=== PATIENT | female | born 1960 | race Caucasian/White ===

== ENCOUNTER → 2016-12-16 | Outpatient (CLI) | payer BC ==
--- NOTE | 2016-12-16 17:01 | REP ---
Left shoulder series: Three views: History: Joint pain in the shoulder for 2 years. Progressive. No comparison study. Findings: The left glenohumeral and acromioclavicular joints are normally aligned. Periarticular soft tissues are unremarkable. No bony erosive changes seen. No left rib abnormality is appreciated. Impression: Negative left shoulder radiographs. Signed by Finn Horta MD 12/17/2016 08:16 A
== END ==
LOC: M WUC 16:41
PROVIDERS: ATTEND Nurse Practitioner Family
DX: M25.551 Pain in right hip (principal); M46.1 Sacroiliitis, not elsewhere classified; M51.36 Other intervertebral disc degeneration, lumbar region; M54.5 Low back pain; M54.12 Radiculopathy, cervical region

== ENCOUNTER → 2017-05-02 | Outpatient (CLI) | payer BC ==
[2017-05-02 14:17] LABS: TOTAL PROTEIN 7.8 GM/DL (6.4-8.2)
[2017-05-06 11:58] LABS: ALBUMIN 4.87 GM/DL (3.29-5.55); ALBUMIN % 62.4 % (55.8-66.1); GAMMA GLOBULIN % 11.7 % (11.1-18.8)
== END ==
LOC: M SMT 11:25
PROVIDERS: ATTEND Physician Assistant Medical
DX: I63.9 Cerebral infarction, unspecified (principal)

== ENCOUNTER → 2018-02-25 | Outpatient (REF) | payer BC | LOC: M LAB REF 09:05 | DX: J35.8 Other chronic diseases of tonsils and adenoids (principal) | CPT/HCPCS: 88305 ==

== ENCOUNTER → 2018-03-25 | Outpatient (CLI) | payer BC | LOC: M RAD 15:32 | DX: H93.11 Tinnitus, right ear (principal) | CPT/HCPCS: 70480 ==

== ENCOUNTER → 2018-06-05 | Outpatient (REF) | payer BC ==
[2018-06-05 14:09] LABS: BASO % 0.8 % (0.0-1.0); EOS # 0.1 10^3/uL (0.0-0.50); EOS % 1.7 % (0.0-3.0); HEMATOCRIT 46.1 % (36.0-47.0); HEMOGLOBIN 14.7 g/dl (12.0-15.5); IMMATURE GRANULOCYTE % 0.4 % (0-3.0); LYMPH # 1.9 10^3/uL (1.5-4.5); LYMPH % 36.9 % (24.0-44.0); MEAN CORPUSCULAR HEMOGLOBIN 29.2 pg (27.0-33.0); MEAN CORPUSCULAR HGB CONC 31.9 g/dl (32.0-36.5); MEAN CORPUSCULAR VOLUME 91.5 fl (80.0-96.0); MONO # 0.4 10^3/uL (0.0-0.8); MONO % 7.3 % (0.0-5.0); NEUTROPHILS # 2.8 10^3/uL (1.8-7.7); NEUTROPHILS % 52.9 % (36.0-66.0); PLATELET COUNT, AUTOMATED 198 10^3/uL (150-450); RED BLOOD COUNT 5.04 10^6/uL (4.00-5.40); RED CELL DISTRIBUTION WIDTH 11.9 % (11.5-14.5); WHITE BLOOD COUNT 5.2 10^3/uL (4.0-10.0)
[2018-06-05 14:36] LABS: ALBUMIN 4.2 GM/DL (3.2-5.2); ALBUMIN/GLOBULIN RATIO 1.35 (1.00-1.93); ALKALINE PHOSPHATASE 70 U/L (45-117); ALT/SGPT 48 U/L (12-78); ANION GAP 9 MEQ/L (8-16); AST/SGOT 33 U/L (7-37); BILIRUBIN,TOTAL 0.8 MG/DL (0.2-1.0); BLOOD UREA NITROGEN 12 MG/DL (7-18); CALCIUM LEVEL 9.7 MG/DL (8.5-10.1); CARBON DIOXIDE LEVEL 29 MEQ/L (21-32); CHLORIDE LEVEL 105 MEQ/L (98-107); CREATININE FOR GFR 0.83 MG/DL (0.55-1.30); GLOMERULAR FILTRATION RATE > 60.0 (>51); GLUCOSE, FASTING 89 MG/DL (70-100); POTASSIUM SERUM 3.9 MEQ/L (3.5-5.1); PTH INTACT 86.5 PG/ML (18.5-88.0); RHEUMATOID FACTOR QUANT < 10.0 IU/ML (<15.0); SODIUM LEVEL 143 MEQ/L (136-145); TOTAL PROTEIN 7.3 GM/DL (6.4-8.2)
[2018-06-05 15:27] LABS: ERYTHROCYTE SEDIMENTATION RATE 4 mm/hr (0-30)
[2018-06-06 14:32] LABS: ANTINUCLEAR ANTIBODIES DIRECT Negative (Negative)
[2018-06-09 10:27] LABS: DRVV SCREEN 37.9 SEC
[2018-06-09 10:28] LABS: PTT LUPUS TYPE ANTICOAG SCREEN 0.9 (0-1.2)
== END ==
LOC: M LABNEURO 09:28
DX: R51 Headache (principal); M54.2 Cervicalgia; R20.0 Anesthesia of skin
CPT/HCPCS: 84443

== ENCOUNTER 2018-10-04 05:44 | Day surgery (SDC) | payer BC ==
[~2018-10-04] VITALS: Ht 165.1 cm; Wt 60.5 kg
[2018-10-04] MEDS ORDERED: MORPHINE 10 MG/ML 1ML VIAL (J2270) IV ONE (06:15)
[2018-10-04] MEDS ORDERED: METOCLOPRAMIDE INJ 10MG/2ML VIAL (J2765) IV ONE (06:15)
[2018-10-04] MEDS ORDERED: NS 1,000 ML IV ONE (06:15)
[2018-10-04 06:28] LABS: BASO % 0.1 % (0.0-1.0); HEMATOCRIT 40.4 % (36.0-47.0); HEMOGLOBIN 13.6 g/dl (12.0-15.5); LYMPH # 0.5 10^3/uL (1.5-4.5); MEAN CORPUSCULAR HEMOGLOBIN 29.8 pg (27.0-33.0); MEAN CORPUSCULAR HGB CONC 33.7 g/dl (32.0-36.5); MEAN CORPUSCULAR VOLUME 88.6 fl (80.0-96.0); MONO # 0.7 10^3/uL (0.0-0.8); MONO % 4.4 % (0.0-5.0); NEUTROPHILS # 15.4 10^3/uL (1.8-7.7); NEUTROPHILS % 91.9 % (36.0-66.0); PLATELET COUNT, AUTOMATED 174 10^3/uL (150-450); RED BLOOD COUNT 4.56 10^6/uL (4.00-5.40); WHITE BLOOD COUNT 16.7 10^3/uL (4.0-10.0)
[2018-10-04] MEDS: GASTROGRAFIN SOLUTION 30ML PO SCH ×2 (06:35→07:15)
[2018-10-04] MEDS ORDERED: metroNIDAZOLE 500 MG in APPROPRIATE DILUENT 1 EA IV ONE (06:45)
[2018-10-04] MEDS ORDERED: PIPERACILLIN/TAZOBACTAM SOD 3.375 GM in D5W MINI-BAG PLUS 50 ML IV ONE (06:45)
[2018-10-04 06:49] LABS: ALBUMIN 4.1 GM/DL (3.2-5.2); ALT/SGPT 36 U/L (12-78); BILIRUBIN,DIRECT 0.2 MG/DL (0.0-0.2); BLOOD UREA NITROGEN 12 MG/DL (7-18); CALCIUM LEVEL 9.3 MG/DL (8.5-10.1); CARBON DIOXIDE LEVEL 25 MEQ/L (21-32); CHLORIDE LEVEL 104 MEQ/L (98-107); CREATININE FOR GFR 0.93 MG/DL (0.55-1.30); GLOMERULAR FILTRATION RATE > 60.0 (>51); GLUCOSE, FASTING 163 MG/DL (70-100); LIPASE 70 U/L (73-393); POTASSIUM SERUM 3.7 MEQ/L (3.5-5.1); SODIUM LEVEL 139 MEQ/L (136-145)
--- NOTE | 2018-10-04 08:43 | REP ---
Clinical: Right lower quadrant pain. Technique: Axial images from the lung bases to the pubic symphysis using oral contrast material (per protocol) with coronal and sagittal re-formations. Findings: Retrocecal appendix is dilated to 13 mm with moderate amount of surrounding betty appendiceal inflammatory stranding consistent with acute appendicitis. (Images 77-102). No associated bowel obstruction, drainable collection/abscess, or free air to suggest perforation. Remainder of the small large bowel is grossly unremarkable. Liver, spleen, pancreas, bilateral adrenal glands and kidneys are normal. The patient is status post cholecystectomy. Pelvis demonstrates normal bladder and age-appropriate uterus/adnexa. No ascites. No free air. No significant adenopathy. Abdominal aorta without aneurysm. Musculoskeletal structures demonstrate degenerative changes. Impression: Acute appendicitis as described above. No associated bowel perforation, obstruction, or drainable collection/abscess noted. Electronically Signed by Raul Yarbrough MD 10/04/2018 08:35 A
[2018-10-04] MEDS ORDERED: BUPIVACAINE/EPIN 0.25% 30 ML VIAL As Ordered ONE (09:05)
[2018-10-04] MEDS ORDERED: METOCLOPRAMIDE INJ 10MG/2ML VIAL (J2765) As Ordered ONE (09:25)
[2018-10-04] MEDS ORDERED: KETOROLAC 60 MG/2 ML VIAL (J1885) As Ordered ONE (09:25)
[2018-10-04] MEDS ORDERED: LIDOCAINE 2% INJ 100 MG/5 ML SDV (FOR ANES.) As Ordered ONE (09:25)
[2018-10-04] MEDS ORDERED: PROPOFOL 200 MG/20 ML VIAL As Ordered ONE (09:25)
[2018-10-04] MEDS ORDERED: fentaNYL 100 MCG/2 ML INJECTION (J3010) As Ordered ONE (09:25)
[2018-10-04] MEDS ORDERED: ONDANSETRON 4MG/2ML VIAL (J2405) As Ordered ONE (09:25)
[2018-10-04] MEDS ORDERED: MIDAZOLAM INJ 2 MG/2 ML VIAL (J2250) As Ordered ONE (09:25)
[2018-10-04] MEDS ORDERED: ROCURONIUM BROMIDE 50 MG/5 ML VIAL As Ordered ONE (09:25)
[2018-10-04] MEDS ORDERED: dexameTHASONE 4 MG/ML 1ML VIAL (J1100) As Ordered ONE (09:25)
[2018-10-04] MEDS ORDERED: SUGAMMADEX SODIUM 500 MG/5 ML VIAL (BRIDION) As Ordered ONE (09:25)
[2018-10-04] MEDS ORDERED: SUCCINYLCHOLINE 100 MG/5 ML SYRINGE (J0330) As Ordered ONE (09:37)
[2018-10-04] MEDS ORDERED: ePHEDrine SULFATE 25 MG/5 ML(5MG/ML) SYRINGE As Ordered ONE (09:42)
[2018-10-04 09:52] LABS: APPEARANCE, URINE CLEAR (CLEAR); BACTERIA, URINE AUTO NEGATIVE (NEGATIVE); BILIRUBIN, URINE AUTO NEGATIVE (NEGATIVE); BLOOD, URINE BLOOD 1+ (NEGATIVE); COLOR, URINE YELLOW (YELLOW); GLUCOSE, URINE (UA) AUTO NEGATIVE (NEGATIVE); KETONE, URINE AUTO NEGATIVE (NEGATIVE); LEUKOCYTE ESTERASE, URINE AUTO TRACE (NEGATIVE); NITRITE, URINE AUTO NEGATIVE (NEGATIVE); PROTEIN, URINE AUTO NEGATIVE (NEGATIVE); RBC, URINE AUTO 9 /HPF (0-3); SPECIFIC GRAVITY URINE AUTO 1.011 (1.002-1.035); SQUAMOUS EPITHELIAL CELL UR AU 0 /HPF (0-6); UROBILINOGEN, URINE AUTO 0.2 mg/dL (0.0-2.0); WBC, URINE AUTO 3 /HPF (0-3)
[2018-10-04] MEDS ORDERED: ACETAMINOPHEN TAB 650MG DOSE (2X325MG) PO PRN (10:15)
[2018-10-04] MEDS ORDERED: MORPHINE 4 MG/ML 1ML VIAL/SYRINGE (J2270) IV PRN (10:15)
[2018-10-04] MEDS ORDERED: ONDANSETRON 4MG/2ML VIAL (J2405) IV PRN ×2 (10:15→10:45)
[2018-10-04] MEDS ORDERED: KETOROLAC 30 MG/ML VIAL (J1885) IV PRN (10:15)
[2018-10-04] MEDS ORDERED: PERCOCET 5MG/325MG TAB As Ordered ONE (10:34)
[2018-10-04] MEDS ORDERED: HYDROMORPHONE HCL 0.5 MG/ 0.5 ML SYRINGE (J1170 PER 1) IV PRN (10:45)
[2018-10-04] MEDS ORDERED: LR 1,000 ML IV SCH (10:45)
[2018-10-04] MEDS ORDERED: fentaNYL 100 MCG/2 ML INJECTION (J3010) IV PRN (10:45)
[2018-10-04] MEDS ORDERED: PERCOCET 5MG/325MG TAB PO PRN (10:45)
--- NOTE | 2018-10-04 11:13 | HPE ---
DATE OF ADMISSION: 10/04/2018 CHIEF COMPLAINT: Right lower quadrant pain. HISTORY OF PRESENT ILLNESS: The patient is a 58-year-old female who presents with right lower quadrant abdominal pain that started yesterday and got progressively worse overnight. She came into emergency room early this morning. She was found to have an elevated white count and CT scan was positive for acute appendicitis. She has had nausea, vomiting and loose stools. Denies any fevers or chills. PAST MEDICAL HISTORY: 1. Hypertension. 2. Stroke. PAST SURGICAL HISTORY: 1. Tubal ligation. 2. Parathyroidectomy. 3. Laparoscopic cholecystectomy. 4. Cataract surgery. ALLERGIES: None. HOME MEDICATIONS: None. SOCIAL HISTORY: Denies drug, alcohol or tobacco abuse. FAMILY HISTORY: Noncontributory. REVIEW OF SYSTEMS: Pertinent positives and negatives as stated in the history of present illness (HPI). PHYSICAL EXAMINATION: General: Alert and oriented times three, in no acute stress. Vitals: Temperature 98.7, pulse 68, respirations 18, blood pressure 130/64, pulse oximetry 99% on room air. HEENT: Pupils equally round and react to light and accommodation. Heart: S1 and S2,regular rate and rhythm. Lungs: Clear to auscultation bilaterally. Abdomen: Soft. Tender to palpation in the right lower quadrant. No guarding or rigidity. No ventral hernias. Extremities: No clubbing, cyanosis or edema. LABORATORY DATA: White count 16.7, hemoglobin 13.6, platelets 174, potassium 3.7, creatinine 0.93. IMAGING STUDIES: CT of abdomen and pelvis shows dilated retrocecal appendix 13 mm with surrounding periappendiceal inflammatory stranding consistent with acute appendicitis. ASSESSMENT/PLAN: The patient is a 58-year-old female with acute appendicitis. Recommendation is to proceed with laparoscopic, possible open appendectomy. The risks and benefits of the procedure not limited to, but including bleeding, infection, hernia formation, damage to surrounding structures, need for further surgery were discussed in detail with the patient. Postoperatively, will keep her overnight and make sure that she remains afebrile and her white count improves. As long as she is doing well in the morning, the plan will be to discharge her then.
[2018-10-04] MEDS: NS 1,000 ML IV SCH ×2 (11:45→20:47)
[2018-10-04] MEDS: NORCO, ANEXSIA 5/325MG TABLET (HYDROcodone/ACETAMINOPHEN) PO PRN ×2 (12:14→20:49)
[2018-10-04 14:00] VITALS: BP 107/56
[2018-10-04] MEDS: PIPERACILLIN/TAZOBACTAM SOD 3.375 GM in D5W MINI-BAG PLUS 50 ML IV SCH ×2 (14:16→20:47)
[2018-10-04] MEDS: SENOKOT S TAB PO SCH (20:48)
[2018-10-04 21:00] VITALS: BP 111/62
[2018-10-05] MEDS: PIPERACILLIN/TAZOBACTAM SOD 3.375 GM in D5W MINI-BAG PLUS 50 ML IV SCH ×2 (01:08→09:38)
[2018-10-05 01:14] VITALS: BP 104/58
[2018-10-05 04:48] VITALS: BP 117/60
[2018-10-05] MEDS: NS 1,000 ML IV SCH ×2 (07:02→10:30)
[2018-10-05 07:10] LABS: HEMATOCRIT 34.8 % (36.0-47.0); MEAN CORPUSCULAR HEMOGLOBIN 29.6 pg (27.0-33.0); MEAN CORPUSCULAR HGB CONC 32.8 g/dl (32.0-36.5); MEAN CORPUSCULAR VOLUME 90.4 fl (80.0-96.0); PLATELET COUNT, AUTOMATED 142 10^3/uL (150-450); RED BLOOD COUNT 3.85 10^6/uL (4.00-5.40)
[2018-10-05 07:15] LABS: HEMOGLOBIN 11.4 g/dl (12.0-15.5)
[2018-10-05] MEDS ORDERED: CIPR500T3 PO (09:38)
[2018-10-05] MEDS ORDERED: NORCOTAB PO (09:38)
[2018-10-05] MEDS ORDERED: METR-201 PO (09:38)
[2018-10-05] MEDS: SENOKOT S TAB PO SCH (09:38)
--- NOTE | 2018-10-05 12:46 | RO ---
DATE OF PROCEDURE: 10/04/2018 PREOPERATIVE DIAGNOSIS: Acute appendicitis. POSTOPERATIVE DIAGNOSIS: Acute appendicitis. PROCEDURE: Laparoscopic appendectomy. SURGEON: Dr. Simon Pereira ASSIST: None. ANESTHESIA: General: ESTIMATED BLOOD LOSS (EBL): 5 COMPLICATIONS: None. INDICATIONS FOR PROCEDURE: Patient is a 58-year-old female, presents with right lower quadrant abdominal pain found to have acute appendicitis. Recommendation was to proceed laparoscopic possible open appendectomy. Risks and benefits of procedure, not limited to but including, bleeding, infection, hernia formation, damage to surrounding structures, need for further surgery, discussed in detail with the patient. Informed consent was obtained and procedure planned. DESCRIPTION OF OPERATION: Patient was brought back to operating room #3. After sufficient sedation, the abdomen was sterilely prepped and draped. Next, a time-out was done to confirm proper patient, proper procedure. Following that, a 5 mm incision made in left upper quadrant. Veress needle was inserted, and was the abdomen was insufflated 15 mmHg. Next, the Veress needle was removed, and a 5 mm Optiview port was used to gain access to the abdomen. The abdomen was entered. There were omental adhesions right at the umbilicus. Two more ports were placed, one 8 mm infraumbilically in the midline, and one 5 mm port suprapubically in the midline. The omental adhesions were taken down at the umbilicus to improve visualization. Once that was completed, the right lower quadrant was examined, and the cecum was retracted medially identifying a large, dilated appendix. It was easily elevated up in the air. Mesoappendix was then taken down using the Enseal until the base was reached. Base was ligated by two PDS Endoloops and then amputated using the Enseal. Appendix was then placed a 5 mm Endo Catch bag, brought out through the umbilical port site. Once that was completed, the right lower quadrant was examined. The omentum was placed back overtop of the right lower quadrant. The abdomen was desufflated. Skin incisions were closed with #4-0 Vicryl subcuticular sutures. The abdomen was cleaned and dried. Steri-Strips, 4x4, and tape were applied, thus ending procedure.
--- NOTE | 2018-10-06 06:13 | DSES ---
DATE OF ADMISSION: 10/04/2018 DATE OF DISCHARGE: 10/05/2018 ADMISSION DIAGNOSIS: Acute appendicitis. DISCHARGE DIAGNOSIS: Acute appendicitis. HOSPITAL COURSE: The patient is a 50-year-old female who presented with acute appendicitis. She was brought to operating room yesterday morning for laparoscopic appendectomy. Postoperatively she has been doing well. Pain is controlled other than a little bit of gas pains in the right shoulder. No nausea or vomiting. No fevers or chills. She is tolerating diet and is planning to go home today. Her white count is still elevated but has improved from 16.7 down to 16. Rest of her labs were normal range. Plan is to discharge her home today. Will keep her on Cipro and Flagyl for about 7 days. She can shower starting today. No baths for 5 days. No lifting more 20 pounds and she is okay to return to work whenever she would like. All of her questions were answered and she will follow up me in the office in 2 weeks.
== END 2018-10-05 11:07 | disposition home or self-care (01) ==
LOC: M ED 05:44 → M SDC 08:45 → M MS4PR 10:50 → M SDC 10-05 11:07
PROVIDERS: ATTEND Surgery
DX: K35.890 Other acute appendicitis without perforation or gangrene (principal); E78.5 Hyperlipidemia, unspecified; I10 Essential (primary) hypertension; Z86.73 Personal history of transient ischemic attack (TIA), and cerebral infarction without residual deficits; Z79.82 Long term (current) use of aspirin; Z79.899 Other long term (current) drug therapy; M54.5 Low back pain
CPT/HCPCS: 36415; 44970; 74176; 80048; 80076; 81001; 83690; 85025; 85027; 87086; 88304; 96365; 96366; 96375; 99284; J0330; J1100; J1885; J2250; J2270; J2405; J2543; J2765; J3010; Q9963

== ENCOUNTER 2018-11-04 06:41 | Day surgery (SDC) | payer BC ==
[~2018-11-04] VITALS: Ht 165.1 cm; Wt 59.4 kg
[~2018-11-04 06:41] MED LIST: ALEN70TA74 PO; ASPI-255 PO; ATOR1TAB19 PO; CIPR500T3 PO; COQ1100C PO; GABA-843 PO; GABA600T4 PO; HYDR-3715 PO; LISI-538 PO; MAGN400C2 PO; MELA5TAB21 PO; METR-265 PO; MULT1TAB10 PO; TIZA4CAP PO; TRAM37.53 PO; XIID5DRO OU
[2018-11-04] MEDS ORDERED: LIDOCAINE 2% INJ 100 MG/5 ML SDV (FOR ANES.) As Ordered ONE (07:02)
[2018-11-04] MEDS ORDERED: PROPOFOL 200 MG/20 ML VIAL As Ordered ONE ×2 (07:02→07:45)
[2018-11-04] MEDS ORDERED: SIMETHICONE 40MG/0.6ML DROPS 30ML As Ordered ONE (07:10)
[2018-11-04] MEDS: NS 1,000 ML IV ONE (07:15)
--- NOTE | 2018-11-04 08:01 | ROOR ---
Patient Name: Lesvia Albert Procedure Date: 11/04/2018 7:30 AM Date of : 1960 Age: 58 Room: [facility] Gender: Female Note Status: Finalized Procedure: Colonoscopy Indications: Hematochezia Providers: DO Eloisa Wing MD: CHUCKY HOPKINS MD Requesting Provider: Medicines: Propofol per Anesthesia Complications: No immediate complications. Procedure: Pre-Anesthesia Assessment: - Prior to the procedure, a History and Physical was performed, and patient medications and allergies were reviewed. The patient is competent. The risks and benefits of the procedure and the sedation options and risks were discussed with the patient. All questions were answered and informed consent was obtained. Patient identification and proposed procedure were verified by the physician, the nurse, the conservation enforcement officer and the racking technician in the endoscopy suite. Mental Status Examination: alert and oriented. Airway Examination: normal oropharyngeal airway and neck mobility. Respiratory Examination: clear to auscultation. CV Examination: normal. ASA Grade Assessment: II - A patient with mild systemic disease. After reviewing the risks and benefits, the patient was deemed in satisfactory condition to undergo the procedure. The anesthesia plan was to use monitored anesthesia care (MAC). Immediately prior to administration of medications, the patient was re-assessed for adequacy to receive sedatives. The heart rate, respiratory rate, oxygen saturations, blood pressure, adequacy of pulmonary ventilation, and response to care were monitored throughout the procedure. The physical status of the patient was re-assessed after the procedure. The Colonoscope was introduced through the anus and advanced to the cecum, identified by the ileocecal valve. The colonoscopy was technically difficult and complex. The patient tolerated the procedure well. Findings: The perianal exam findings include non-thrombosed internal hemorrhoids and internal hemorrhoids that prolapse with straining, but spontaneously regress to the resting position (Grade II). A few small-mouthed diverticula were found in the sigmoid colon. The exam was otherwise without abnormality on direct and retroflexion views. Impression: - Non-thrombosed internal hemorrhoids and internal hemorrhoids that prolapse with straining, but spontaneously regress to the resting position (Grade II) found on perianal exam. - Diverticulosis in the sigmoid colon. - The examination was otherwise normal on direct and retroflexion views. - No specimens collected. Recommendation: - Patient has a contact number available for emergencies. The signs and symptoms of potential delayed complications were discussed with the patient. Return to normal activities tomorrow. Written discharge instructions were provided to the patient. - Telephone my office to schedule appointment at the next available appointment. - Repeat colonoscopy in 5-10 years for screening purposes. Simon Pereira DO 11/04/2018 8:01:27 AM Electronically signed by Simon Pereira DO Number of Addenda: 0 Note Initiated On: 11/04/2018 7:30 AM Estimated Blood Loss: Estimated blood loss: none.
[2018-11-04 08:20] VITALS: BP 131/68
== END 2018-11-04 08:27 | disposition home or self-care (01) ==
LOC: M OPP 06:41
PROVIDERS: ATTEND Surgery
DX: K64.1 Second degree hemorrhoids (principal); K57.30 Diverticulosis of large intestine without perforation or abscess without bleeding; K92.1 Melena

== ENCOUNTER 2018-11-13 10:37 | Emergency (ER) | payer BC ==
[~2018-11-13] VITALS: Ht 165.1 cm; Wt 59.1 kg
[2018-11-13] MEDS: ACETAMINOPHEN TAB 650MG DOSE (2X325MG) PO ONE (11:09)
--- NOTE | 2018-11-13 12:04 | REP ---
Right lower extremity Duplex Doppler venous ultrasound: Real time compression and duplex Doppler interrogation of the right lower extremity deep venous system is performed. The right common femoral, superficial femoral and popliteal veins are fully compressible with transducer pressure and demonstrate normal spontaneous and phasic flow, without evidence of deep venous thrombosis. Impression: No evidence of deep venous thrombosis of the right lower extremity femoral popliteal venous system. Electronically Signed by Simon Sheldon MD 11/13/2018 11:56 A
--- NOTE | 2018-11-13 12:09 | REP ---
ULTRASOUND RIGHT CALF: Real-time sonographic evaluation of the right calf performed at the site of the painful lump. There is a thrombosed varicose vein at that location without other significant finding. IMPRESSION: Thrombosed varicose vein right calf at the site of the palpable painful lump. Electronically Signed by Simon Sheldon MD 11/13/2018 05:04 P
[2018-11-13 12:26] VITALS: BP 108/67
== END 2018-11-13 12:27 | disposition home or self-care (01) ==
LOC: M ED 10:37
DX: I82.811 Embolism and thrombosis of superficial veins of right lower extremity (principal); I10 Essential (primary) hypertension; E78.5 Hyperlipidemia, unspecified; M81.0 Age-related osteoporosis without current pathological fracture; Z79.899 Other long term (current) drug therapy; Z79.82 Long term (current) use of aspirin

== ENCOUNTER → 2018-12-25 | Outpatient (CLI) | payer BC ==
[2018-12-25 13:04] LABS: BASO % 0.6 % (0.0-1.0); EOS # 0.1 10^3/uL (0.0-0.50); EOS % 1.9 % (0.0-3.0); HEMATOCRIT 44.8 % (36.0-47.0); HEMOGLOBIN 14.5 g/dl (12.0-15.5); LYMPH # 1.7 10^3/uL (1.5-4.5); LYMPH % 32.1 % (24.0-44.0); MEAN CORPUSCULAR HEMOGLOBIN 29.7 pg (27.0-33.0); MEAN CORPUSCULAR HGB CONC 32.4 g/dl (32.0-36.5); MEAN CORPUSCULAR VOLUME 91.6 fl (80.0-96.0); MONO # 0.5 10^3/uL (0.0-0.8); MONO % 8.8 % (0.0-5.0); NEUTROPHILS # 2.9 10^3/uL (1.8-7.7); NEUTROPHILS % 56.4 % (36.0-66.0); PLATELET COUNT, AUTOMATED 180 10^3/uL (150-450); RED BLOOD COUNT 4.89 10^6/uL (4.00-5.40); WHITE BLOOD COUNT 5.2 10^3/uL (4.0-10.0)
[2018-12-25 13:18] LABS: ALBUMIN 4.1 GM/DL (3.2-5.2); ALT/SGPT 70 U/L (12-78); BILIRUBIN,TOTAL 0.7 MG/DL (0.2-1.0); BLOOD UREA NITROGEN 12 MG/DL (7-18); CALCIUM LEVEL 9.8 MG/DL (8.5-10.1); CARBON DIOXIDE LEVEL 34 MEQ/L (21-32); CHLORIDE LEVEL 106 MEQ/L (98-107); CHOLESTEROL LEVEL 169 MG/DL (<200); CHOLESTEROL RISK RATIO 2.682 (<5); CREATININE FOR GFR 0.84 MG/DL (0.55-1.30); FREE T4 0.84 NG/DL (0.76-1.46); GLOMERULAR FILTRATION RATE > 60.0 (>51); GLUCOSE, FASTING 97 MG/DL (70-100); HDL CHOLESTEROL 63 MG/DL (>40); LDL CHOLESTEROL 93 MG/DL (<100); NON-HDL-C 106 MG/DL; POTASSIUM SERUM 4.2 MEQ/L (3.5-5.1); SODIUM LEVEL 143 MEQ/L (136-145); TOTAL PROTEIN 7.3 GM/DL (6.4-8.2); TRIGLYCERIDES LEVEL 65 MG/DL (<150)
== END ==
LOC: M SMT 09:44
PROVIDERS: ATTEND Physician Assistant
DX: I10 Essential (primary) hypertension (principal); E78.2 Mixed hyperlipidemia; M54.5 Low back pain

== ENCOUNTER → 2019-03-19 | Outpatient (CLI) | payer BC ==
--- NOTE | 2019-03-19 12:28 | REP ---
Chest x-ray: Three views. History: Acute bronchitis. Findings: The lungs are symmetrically aerated and clear. Pleural angles are sharp. Heart size is normal. No significant bony abnormality is seen. Impression: Negative chest x-ray. Electronically Signed by Finn Horta MD 03/19/2019 12:20 P
== END ==
LOC: M ADAMS 11:00
PROVIDERS: ATTEND Physician Assistant Medical
DX: J20.9 Acute bronchitis, unspecified (principal)

== ENCOUNTER → 2019-04-02 | Outpatient (CLI) | payer BC ==
[2019-04-02 12:09] LABS: BASO % 0.5 % (0.0-1.0); EOS # 0.1 10^3/uL (0.0-0.50); EOS % 1.2 % (0.0-3.0); HEMATOCRIT 44.6 % (36.0-47.0); HEMOGLOBIN 14.8 g/dl (12.0-15.5); LYMPH # 1.6 10^3/uL (1.5-4.5); LYMPH % 28.1 % (24.0-44.0); MEAN CORPUSCULAR HEMOGLOBIN 30.8 pg (27.0-33.0); MEAN CORPUSCULAR HGB CONC 33.2 g/dl (32.0-36.5); MEAN CORPUSCULAR VOLUME 92.9 fl (80.0-96.0); MONO # 0.5 10^3/uL (0.0-0.8); MONO % 8.9 % (0.0-5.0); NEUTROPHILS # 3.4 10^3/uL (1.8-7.7); NEUTROPHILS % 61.1 % (36.0-66.0); PLATELET COUNT, AUTOMATED 202 10^3/uL (150-450); WHITE BLOOD COUNT 5.6 10^3/uL (4.0-10.0)
[2019-04-02 12:36] LABS: ALBUMIN 3.9 GM/DL (3.2-5.2); ALT/SGPT 101 U/L (12-78); BILIRUBIN,TOTAL 0.7 MG/DL (0.2-1.0); BLOOD UREA NITROGEN 12 MG/DL (7-18); CALCIUM LEVEL 10.1 MG/DL (8.5-10.1); CARBON DIOXIDE LEVEL 34 MEQ/L (21-32); CHLORIDE LEVEL 104 MEQ/L (98-107); CHOLESTEROL LEVEL 173 MG/DL (<200); CHOLESTEROL RISK RATIO 2.544 (<5); CREATININE FOR GFR 0.81 MG/DL (0.55-1.30); GLOMERULAR FILTRATION RATE > 60.0 (>51); GLUCOSE, FASTING 130 MG/DL (70-100); HDL CHOLESTEROL 68 MG/DL (>40); LDL CHOLESTEROL 91 MG/DL (<100); NON-HDL-C 105 MG/DL; POTASSIUM SERUM 4.3 MEQ/L (3.5-5.1); SODIUM LEVEL 142 MEQ/L (136-145); TRIGLYCERIDES LEVEL 68 MG/DL (<150)
[2019-04-02 19:45] LABS: HEMOGLOBIN A1c 5.8 %
== END ==
LOC: M WUC 09:20
PROVIDERS: ATTEND Family Medicine
DX: E78.2 Mixed hyperlipidemia (principal); I10 Essential (primary) hypertension

== ENCOUNTER → 2020-03-26 | Outpatient (CLI) | payer BC ==
[2020-03-26 15:27] LABS: BASO % 0.5 % (0.0-1.0); EOS # 0.1 10^3/uL (0.0-0.5); EOS % 1.2 % (0.0-3.0); HEMATOCRIT 45.2 % (36.0-47.0); HEMOGLOBIN 14.5 g/dl (12.0-15.5); LYMPH # 1.6 10^3/uL (1.5-5.0); LYMPH % 22.3 % (24.0-44.0); MEAN CORPUSCULAR HEMOGLOBIN 29.7 pg (27.0-33.0); MEAN CORPUSCULAR HGB CONC 32.1 g/dl (32.0-36.5); MEAN CORPUSCULAR VOLUME 92.4 fl (80.0-96.0); MONO # 0.6 10^3/uL (0.0-0.8); MONO % 8.6 % (0.0-5.0); NEUTROPHILS # 4.9 10^3/uL (1.5-8.5); NEUTROPHILS % 67.1 % (36.0-66.0); PLATELET COUNT, AUTOMATED 196 10^3/uL (150-450); RED BLOOD COUNT 4.89 10^6/uL (4.00-5.40); WHITE BLOOD COUNT 7.4 10^3/uL (4.0-10.0)
[2020-03-26 16:16] LABS: ALT/SGPT 58 U/L (12-78); BILIRUBIN,TOTAL 0.6 MG/DL (0.2-1.0); BLOOD UREA NITROGEN 11 MG/DL (7-18); CALCIUM LEVEL 9.7 MG/DL (8.5-10.1); CARBON DIOXIDE LEVEL 32 MEQ/L (21-32); CHLORIDE LEVEL 107 MEQ/L (98-107); CHOLESTEROL LEVEL 186 MG/DL (<200); CHOLESTEROL RISK RATIO 2.952 (<5); CREATININE FOR GFR 0.96 MG/DL (0.55-1.30); FREE T4 0.76 NG/DL (0.76-1.46); GLOMERULAR FILTRATION RATE > 60.0 (>51); GLUCOSE, FASTING 115 MG/DL (70-100); HDL CHOLESTEROL 63 MG/DL (>40); LDL CHOLESTEROL 100 MG/DL (<100); NON-HDL-C 123 MG/DL; POTASSIUM SERUM 4.3 MEQ/L (3.5-5.1); SODIUM LEVEL 141 MEQ/L (136-145); TOTAL PROTEIN 6.8 GM/DL (6.4-8.2); TRIGLYCERIDES LEVEL 115 MG/DL (<150)
== END ==
LOC: M WUC 08:35
PROVIDERS: ATTEND Physician Assistant
DX: I10 Essential (primary) hypertension (principal); E78.2 Mixed hyperlipidemia; K58.2 Mixed irritable bowel syndrome

== ENCOUNTER → 2020-03-31 | Outpatient (CLI) | payer BC | LOC: M WUC 12:56 | PROVIDERS: ATTEND Family Medicine | DX: R53.83 Other fatigue (principal) ==

== ENCOUNTER → 2020-10-27 | Outpatient (CLI) | payer BC ==
[~2020-10-27] MED LIST changes: -ALEN70TA74 PO; +ALEN70TA82 PO; +GABA-282 PO; -GABA-843 PO; -LISI-538 PO; +LISI20TA33 PO
[2020-10-27 14:51] LABS: BASO % 0.6 % (0.0-1.0); EOS # 0.1 10^3/uL (0.0-0.5); EOS % 1.1 % (0.0-3.0); HEMATOCRIT 43.9 % (36.0-47.0); HEMOGLOBIN 14.1 g/dl (12.0-15.5); LYMPH # 1.9 10^3/uL (1.5-5.0); MEAN CORPUSCULAR HEMOGLOBIN 29.2 pg (27.0-33.0); MEAN CORPUSCULAR HGB CONC 32.1 g/dl (32.0-36.5); MEAN CORPUSCULAR VOLUME 90.9 fl (80.0-96.0); MONO # 0.5 10^3/uL (0.0-0.8); MONO % 8.6 % (2.0-8.0); NEUTROPHILS # 3.7 10^3/uL (1.5-8.5); NEUTROPHILS % 59.4 % (36.0-66.0); PLATELET COUNT, AUTOMATED 199 10^3/uL (150-450); RED BLOOD COUNT 4.83 10^6/uL (4.00-5.40); WHITE BLOOD COUNT 6.3 10^3/uL (4.0-10.0)
[2020-10-27 15:22] LABS: ALBUMIN 4.4 GM/DL (3.2-5.2); ALT/SGPT 31 U/L (12-78); BILIRUBIN,TOTAL 0.7 MG/DL (0.2-1.0); BLOOD UREA NITROGEN 15 MG/DL (7-18); CALCIUM LEVEL 9.9 MG/DL (8.8-10.2); CARBON DIOXIDE LEVEL 30 MEQ/L (21-32); CHLORIDE LEVEL 104 MEQ/L (98-107); CHOLESTEROL LEVEL 187 MG/DL (<200); CHOLESTEROL RISK RATIO 2.833 (<5); CREATININE FOR GFR 0.78 MG/DL (0.55-1.30); GLOMERULAR FILTRATION RATE > 60.0 (>45); GLUCOSE, FASTING 93 MG/DL (70-100); HDL CHOLESTEROL 66 MG/DL (>40); LDL CHOLESTEROL 94 MG/DL (<100); NON-HDL-C 121 MG/DL; POTASSIUM SERUM 3.8 MEQ/L (3.5-5.1); SODIUM LEVEL 140 MEQ/L (136-145); TOTAL PROTEIN 7.2 GM/DL (6.4-8.2); TRIGLYCERIDES LEVEL 135 MG/DL (<150)
== END ==
LOC: M WUC 12:02
PROVIDERS: ATTEND Family Medicine
DX: I10 Essential (primary) hypertension (principal); E78.2 Mixed hyperlipidemia

== ENCOUNTER → 2020-11-13 | Outpatient (CLI) | payer BC ==
--- NOTE | 2020-11-13 16:37 | DEXAMM ---
INDICATION: AGE RELATED OSTEOPOROSIS W/O FX. COMPARISON: 11/06/2018 and 05/14/2016. TECHNIQUE: Bone density was measured using dual-energy x-ray absorptiometry (DEXA). FINDINGS: AP SPINE L1-L4 BMD 0.875 g/cm2 Young Adult T-Score -2.6 Age Matched Z-Score -1.4. LT FEMUR, TOTAL BMD 0.797 g/cm2 Young Adult T-Score -1.7 Age Matched Z-Score -0.8. LT NECK BMD 0.719 g/cm2 Young Adult T-Score -2.3 Age Matched Z-Score -1.1. RT FEMUR, TOTAL BMD 0.767 g/cm2 Young Adult T-Score -1.9 Age Matched Z-Score -1.0. RT NECK BMD 0.727 g/cm2 Young Adult T-Score -2.2 Age Matched Z-Score -1.0. IMPRESSION: There is osteoporosis of the spine. There is low bone density of the left hip. There is low bone density of the right hip. The density of the spine has increased 1.2% since the initial exam on 05/14/2016. The density of the spine decreased 4.0% since most recent exam on 11/06/2018. The density of the left hip has decreased 0.3% since initial exam on 05/14/2016. The density of the left hip has decreased 2.0% since most recent exam on 11/06/2018. The density of the right hip has decreased 1.9% since the initial exam on 05/14/2016. The density of the right hip has decreased 2.4% since the most recent exam on 11/06/2018. FOLLOW-UP: Recommendation for the next bone density exam: 2 years. <Electronically signed by Simon Sheldon > 11/13/20 [id number]
== END ==
LOC: M WHC 15:20
PROVIDERS: ATTEND Family Medicine
DX: M81.0 Age-related osteoporosis without current pathological fracture (principal); M85.851 Other specified disorders of bone density and structure, right thigh; M85.852 Other specified disorders of bone density and structure, left thigh

== ENCOUNTER → 2021-05-03 | Outpatient (CLI) | payer OTHER ==
--- NOTE | 2021-05-04 17:59 | REPVR ---
PROCEDURE INFORMATION: Exam: MR Lumbar Spine Without Contrast Exam date and time: 05/03/2021 10:53 AM Age: 60 years old Clinical indication: Injury or trauma; Work related; Sprain or strain, lumbar ligaments; Additional info: Radiculopathy TECHNIQUE: Imaging protocol: Multiplanar magnetic resonance images of the lumbar spine without intravenous contrast. COMPARISON: CT ABD/PEL W/PO CONTRAST ONLY 10/04/2018 8:15 AM FINDINGS: Vertebrae: Unremarkable. Spinal cord: Normal signal. No cord compression. L1-L2: No significant disc disease. No significant spinal canal stenosis. No neural foraminal stenosis. L2-L3: No significant disc disease. No significant spinal canal stenosis. No neural foraminal stenosis. L3-L4: Mild annular bulge L3-L4 without spinal stenosis. Mild bilateral facet joint arthropathy. L4-L5: Moderate annular bulge at L4-L5 with a central protrusion flattening the mid thecal sac without significant spinal stenosis. Mild bilateral facet joint arthropathy. L5-S1: Mild bilateral facet joint arthropathy L5-S1. Sacrum/coccyx: Sacral cyst demonstrated. Soft tissues: Unremarkable. IMPRESSION: 1. Mild degenerative changes with an annular bulge at L3-L4 without spinal stenosis. Moderate annular bulge at L4-L5 with a central disc protrusion flattening the mid thecal sac without significant spinal stenosis. 2. Mild bilateral facet joint arthropathy at L3-L4 , L4-L5 and L5-S1. Electronically signed by: Dharmesh Panda On 05/04/2021 17:59:52 PM
== END ==
LOC: M PLAIMG 10:11
PROVIDERS: ATTEND Nurse Practitioner Family
DX: M54.16 Radiculopathy, lumbar region (principal); M51.26 Other intervertebral disc displacement, lumbar region

== ENCOUNTER → 2021-10-10 | Outpatient (REF) | LOC: M PLAIMG 11:44 | PROVIDERS: ATTEND Internal Medicine | DX: M54.2 Cervicalgia (principal) ==

== ENCOUNTER → 2021-12-27 | Outpatient (CLI) | payer BC ==
[2021-12-27 10:45] LABS: BLOOD UREA NITROGEN 11 MG/DL (7-18); GLOMERULAR FILTRATION RATE > 60.0 (>45)
== END ==
LOC: M WUC 08:29
PROVIDERS: ATTEND Psychiatry & Neurology Neurology
DX: E87.5 Hyperkalemia (principal); N18.9 Chronic kidney disease, unspecified

== ENCOUNTER → 2021-12-27 | Outpatient (CLI) | payer BC ==
[2021-12-27 10:19] LABS: BASO # 0.1 10^3/uL (0.0-0.2); EOS # 0.1 10^3/uL (0.0-0.5); EOS % 1.8 % (0.0-3.0); HEMATOCRIT 42.9 % (36.0-47.0); HEMOGLOBIN 13.8 g/dl (12.0-15.5); LYMPH # 1.7 10^3/uL (1.5-5.0); LYMPH % 33.5 % (24.0-44.0); MEAN CORPUSCULAR HEMOGLOBIN 29.4 pg (27.0-33.0); MEAN CORPUSCULAR HGB CONC 32.2 g/dl (32.0-36.5); MEAN CORPUSCULAR VOLUME 91.3 fl (80.0-96.0); MONO # 0.4 10^3/uL (0.0-0.8); MONO % 8.5 % (2.0-8.0); NEUTROPHILS # 2.7 10^3/uL (1.5-8.5); NEUTROPHILS % 55.2 % (36.0-66.0); PLATELET COUNT, AUTOMATED 182 10^3/uL (150-450)
[2021-12-27 11:04] LABS: ALT/SGPT 48 U/L (12-78); BILIRUBIN,TOTAL 0.5 MG/DL (0.2-1.0); BLOOD UREA NITROGEN 11 MG/DL (7-18); CALCIUM LEVEL 9.6 MG/DL (8.8-10.2); CARBON DIOXIDE LEVEL 31 MEQ/L (21-32); CHLORIDE LEVEL 108 MEQ/L (98-107); CHOLESTEROL LEVEL 179 MG/DL (<200); CHOLESTEROL RISK RATIO 2.712 (<5); CREATININE FOR GFR 0.85 MG/DL (0.55-1.30); FREE T4 0.74 NG/DL (0.76-1.46); GLOMERULAR FILTRATION RATE > 60.0 (>45); GLUCOSE, FASTING 110 MG/DL (70-100); HDL CHOLESTEROL 66 MG/DL (>40); LDL CHOLESTEROL 90 MG/DL (<100); NON-HDL-C 113 MG/DL; SODIUM LEVEL 140 MEQ/L (136-145); TOTAL PROTEIN 6.7 GM/DL (6.4-8.2); TRIGLYCERIDES LEVEL 115 MG/DL (<150)
[2021-12-27 13:34] LABS: TOTAL 25(OH) VITAMIN D 60.8 NG/ML (30.0-100.0)
== END ==
LOC: M WUC 08:27
PROVIDERS: ATTEND Family Medicine
DX: I10 Essential (primary) hypertension (principal); E78.2 Mixed hyperlipidemia; M81.0 Age-related osteoporosis without current pathological fracture

== ENCOUNTER → 2022-02-25 | Outpatient (CLI) | payer BC | LOC: M RAD 07:52 | PROVIDERS: ATTEND Nurse Practitioner Family | DX: M54.12 Radiculopathy, cervical region (principal) ==

== ENCOUNTER → 2022-06-06 | Outpatient (CLI) | payer BC ==
[2022-06-06 14:24] LABS: BASO # 0.1 10^3/uL (0.0-0.2); BASO % 0.8 % (0.0-1.0); EOS # 0.1 10^3/uL (0.0-0.5); EOS % 1.4 % (0.0-3.0); HEMATOCRIT 42.9 % (36.0-47.0); HEMOGLOBIN 13.8 g/dl (12.0-15.5); LYMPH # 2.1 10^3/uL (1.5-5.0); LYMPH % 35.9 % (24.0-44.0); MEAN CORPUSCULAR HGB CONC 32.2 g/dl (32.0-36.5); MEAN CORPUSCULAR VOLUME 93.3 fl (80.0-96.0); MONO # 0.6 10^3/uL (0.0-0.8); MONO % 9.5 % (2.0-8.0); NEUTROPHILS # 3.1 10^3/uL (1.5-8.5); NEUTROPHILS % 52.1 % (36.0-66.0); PLATELET COUNT, AUTOMATED 190 10^3/uL (150-450); WHITE BLOOD COUNT 5.9 10^3/uL (4.0-10.0)
[2022-06-06 14:58] LABS: ERYTHROCYTE SEDIMENTATION RATE 3 mm/hr (0-30)
[2022-06-06 15:43] LABS: ALBUMIN 4.2 GM/DL (3.2-5.2); ALT/SGPT 64 U/L (12-78); BILIRUBIN,TOTAL 0.6 MG/DL (0.2-1.0); BLOOD UREA NITROGEN 17 MG/DL (7-18); CALCIUM LEVEL 10.7 MG/DL (8.8-10.2); CARBON DIOXIDE LEVEL 30 MEQ/L (21-32); CHLORIDE LEVEL 105 MEQ/L (98-107); CREATININE FOR GFR 0.84 MG/DL (0.55-1.30); GLOMERULAR FILTRATION RATE > 60.0 (>45); GLUCOSE, FASTING 103 MG/DL (70-100); POTASSIUM SERUM 4.5 MEQ/L (3.5-5.1); SODIUM LEVEL 141 MEQ/L (136-145); TOTAL PROTEIN 6.9 GM/DL (6.4-8.2); URIC ACID 4.5 MG/DL (2.6-6.0)
== END ==
LOC: M PLAIMG 10:54
PROVIDERS: ATTEND Nurse Practitioner Adult Health
DX: M79.644 Pain in right finger(s) (principal)

== ENCOUNTER → 2022-06-19 | Outpatient (CLI) | payer BC | LOC: M WHC 13:02 | PROVIDERS: ATTEND Internal Medicine Cardiovascular Disease | DX: E78.5 Hyperlipidemia, unspecified (principal); I10 Essential (primary) hypertension; I63.9 Cerebral infarction, unspecified ==

== ENCOUNTER → 2022-10-11 | Outpatient (REF) | payer BC, OTHER ==
[2022-10-11 17:14] LABS: C REACTIVE PROTEIN QUANTITATIV < 0.40 MG/DL (<1.0)
[2022-10-11 17:16] LABS: RHEUMATOID FACTOR QUANT < 3.5 IU/ML (<14)
[2022-10-14 19:08] LABS: CYCLIC CITRULLINATED PEPTIDE 5 units (0-19)
== END ==
LOC: M LAB REF 16:16
PROVIDERS: ATTEND Internal Medicine
DX: M25.50 Pain in unspecified joint (principal); Z13.89 Encounter for screening for other disorder

== ENCOUNTER → 2022-11-27 | Outpatient (CLI) | payer OTHER | LOC: M WHC 10:39 | PROVIDERS: ATTEND Internal Medicine Endocrinology, Diabetes & Metabolism | DX: M81.0 Age-related osteoporosis without current pathological fracture (principal); M85.89 Other specified disorders of bone density and structure, multiple sites ==

== ENCOUNTER → 2023-01-30 | Outpatient (CLI) | payer OTHER | LOC: M SOG 07:56 | PROVIDERS: ATTEND Physician Assistant | DX: M25.522 Pain in left elbow (principal) ==

== ENCOUNTER → 2023-02-17 | Outpatient (CLI) | payer OTHER ==
[~2023-02-17] MED LIST changes: +CALC600C3 PO; +LIDO76.52 TOP; +SERT50TA29 PO; +VITMTA PO; +ZONI100C67 PO
== END ==
LOC: M PAIN 13:00
PROVIDERS: ATTEND Nurse Practitioner Family
DX: M79.12 Myalgia of auxiliary muscles, head and neck (principal); G89.29 Other chronic pain; M54.2 Cervicalgia; G43.909 Migraine, unspecified, not intractable, without status migrainosus; I10 Essential (primary) hypertension; E78.5 Hyperlipidemia, unspecified; M54.50 Low back pain, unspecified; I73.00 Raynaud's syndrome without gangrene; Z87.891 Personal history of nicotine dependence; Z79.891 Long term (current) use of opiate analgesic; Z79.82 Long term (current) use of aspirin; Z79.899 Other long term (current) drug therapy; Z88.8 Allergy status to other drugs, medicaments and biological substances

== ENCOUNTER → 2023-02-24 | Outpatient (CLI) | payer OTHER | LOC: M PAIN 16:15 | PROVIDERS: ATTEND Nurse Practitioner Family | DX: M46.1 Sacroiliitis, not elsewhere classified (principal); M54.2 Cervicalgia; G89.29 Other chronic pain; G43.909 Migraine, unspecified, not intractable, without status migrainosus; I10 Essential (primary) hypertension; E78.5 Hyperlipidemia, unspecified; M54.50 Low back pain, unspecified; I73.00 Raynaud's syndrome without gangrene; Z87.891 Personal history of nicotine dependence; Z85.828 Personal history of other malignant neoplasm of skin; Z79.891 Long term (current) use of opiate analgesic; Z79.899 Other long term (current) drug therapy; Z79.82 Long term (current) use of aspirin; Z88.8 Allergy status to other drugs, medicaments and biological substances ==

== ENCOUNTER → 2023-04-03 | Outpatient (CLI) | payer OTHER | LOC: M PAIN 16:00 | PROVIDERS: ATTEND Nurse Practitioner Family | DX: M46.1 Sacroiliitis, not elsewhere classified (principal); G89.29 Other chronic pain; G43.909 Migraine, unspecified, not intractable, without status migrainosus; I10 Essential (primary) hypertension; Z87.891 Personal history of nicotine dependence; Z88.1 Allergy status to other antibiotic agents; Z88.8 Allergy status to other drugs, medicaments and biological substances; Z79.82 Long term (current) use of aspirin; Z79.899 Other long term (current) drug therapy ==

== ENCOUNTER → 2023-04-08 | Outpatient (CLI) | payer OTHER | LOC: M WUC 09:44 | PROVIDERS: ATTEND Internal Medicine | DX: R10.2 Pelvic and perineal pain (principal) ==

== ENCOUNTER → 2023-04-23 | Outpatient (CLI) | payer OTHER | LOC: M PLAIMG 12:56 | PROVIDERS: ATTEND Internal Medicine | DX: M54.59 Other low back pain (principal) ==

== ENCOUNTER → 2023-05-06 | Outpatient (CLI) | payer OTHER ==
[~2023-05-06] MED LIST changes: +TRIAMCINOLONE ACETONIDE SUSP 40MG/ML 1ML VIAL As Ordered ONE
== END ==
LOC: M PAIN 10:15
PROVIDERS: ATTEND Anesthesiology
DX: M79.10 Myalgia, unspecified site (principal); G89.29 Other chronic pain; Z85.828 Personal history of other malignant neoplasm of skin; Z87.891 Personal history of nicotine dependence; Z88.1 Allergy status to other antibiotic agents; Z88.8 Allergy status to other drugs, medicaments and biological substances; Z79.82 Long term (current) use of aspirin; Z79.899 Other long term (current) drug therapy
CPT/HCPCS: 20552; J0665; J3301

== ENCOUNTER → 2023-05-07 | Outpatient (CLI) | payer OTHER ==
[~2023-05-07] MED LIST changes: -TRIAMCINOLONE ACETONIDE SUSP 40MG/ML 1ML VIAL As Ordered ONE
== END ==
LOC: M PLAIMG 12:20
PROVIDERS: ATTEND Nurse Practitioner Family
DX: M46.1 Sacroiliitis, not elsewhere classified (principal)

== ENCOUNTER → 2023-06-12 | Outpatient (CLI) | payer OTHER | LOC: M PAIN 17:00 | PROVIDERS: ATTEND Nurse Practitioner Family | DX: M46.1 Sacroiliitis, not elsewhere classified (principal); G89.29 Other chronic pain; Z85.828 Personal history of other malignant neoplasm of skin; Z87.891 Personal history of nicotine dependence; Z88.1 Allergy status to other antibiotic agents; Z88.8 Allergy status to other drugs, medicaments and biological substances; Z79.82 Long term (current) use of aspirin; Z79.899 Other long term (current) drug therapy ==

== ENCOUNTER → 2023-06-17 | Outpatient (CLI) | payer OTHER | LOC: M PAIN 15:00 | PROVIDERS: ATTEND Nurse Practitioner Family | DX: M79.10 Myalgia, unspecified site (principal); G89.29 Other chronic pain; Z85.828 Personal history of other malignant neoplasm of skin; Z87.891 Personal history of nicotine dependence; Z88.1 Allergy status to other antibiotic agents; Z88.8 Allergy status to other drugs, medicaments and biological substances; Z79.82 Long term (current) use of aspirin; Z79.899 Other long term (current) drug therapy ==

== ENCOUNTER → 2023-08-12 | Outpatient (CLI) | payer OTHER | LOC: M PAIN 10:00 | PROVIDERS: ATTEND Nurse Practitioner Family | DX: M46.1 Sacroiliitis, not elsewhere classified (principal); G89.29 Other chronic pain; M54.50 Low back pain, unspecified; M54.2 Cervicalgia; I10 Essential (primary) hypertension; E78.5 Hyperlipidemia, unspecified; Z87.891 Personal history of nicotine dependence; Z79.891 Long term (current) use of opiate analgesic; Z79.82 Long term (current) use of aspirin; Z79.899 Other long term (current) drug therapy; Z88.8 Allergy status to other drugs, medicaments and biological substances ==

== ENCOUNTER → 2023-10-01 | Outpatient (CLI) | payer OTHER ==
[2023-10-01 10:20] LABS: BLOOD UREA NITROGEN 15 MG/DL (9-23); CALCIUM LEVEL 9.9 MG/DL (8.3-10.6); CARBON DIOXIDE LEVEL 33 MMOL/L (20-31); CHLORIDE LEVEL 106 MMOL/L (98-107); CREATININE FOR GFR 0.86 MG/DL (0.55-1.30); GLOMERULAR FILTRATION RATE > 60.0 (>45); GLUCOSE, FASTING 96 MG/DL (74-106); POTASSIUM SERUM 4.1 MMOL/L (3.5-5.1); SODIUM LEVEL 142 MMOL/L (136-145)
== END ==
LOC: M WUC 08:32
PROVIDERS: ATTEND Surgery
DX: E21.3 Hyperparathyroidism, unspecified (principal)

== ENCOUNTER → 2023-10-22 | Outpatient (REF) | payer OTHER ==
[2023-10-22 14:36] LABS: PHOSPHORUS LEVEL 3.6 MG/DL (2.4-5.1)
[2023-10-22 14:41] LABS: PTH INTACT 57.6 PG/ML (18.5-88.0)
[2023-10-22 14:45] LABS: FREE T3 3.1 PG/ML (2.3-4.2)
== END ==
LOC: M LAB REF 12:18
PROVIDERS: ATTEND Internal Medicine
DX: R63.4 Abnormal weight loss (principal); E83.52 Hypercalcemia; M89.9 Disorder of bone, unspecified

== ENCOUNTER → 2024-01-08 | Outpatient (CLI) | payer OTHER ==
[~2024-01-08] MED LIST changes: +ATOR40TA75 PO; +CALC250T PO; +THERTAB52 PO
== END ==
LOC: M WUC 11:09
PROVIDERS: ATTEND Internal Medicine
DX: R07.82 Intercostal pain (principal)

== ENCOUNTER 2024-01-16 06:44 | Day surgery (SDC) | payer OTHER ==
[~2024-01-16] VITALS: Ht 166.4 cm; Wt 46.3 kg
[2024-01-16] MEDS ORDERED: fentaNYL 100 MCG/2 ML INJECTION As Ordered ONE (07:01)
[2024-01-16] MEDS ORDERED: LIDOCAINE 2% 100MG/5ML SDV (FOR ANES.) As Ordered ONE (07:02)
[2024-01-16] MEDS ORDERED: ONDANSETRON 4MG 2ML VIAL As Ordered ONE (07:18)
[2024-01-16] MEDS: NS 1,000 ML IV ONE (07:19)
[2024-01-16] MEDS ORDERED: propofoL 200 MG/20 ML VIAL As Ordered ONE (07:53)
[2024-01-16] MEDS ORDERED: ePHEDrine SULFATE 25 MG/5 ML(5MG/ML) SYRINGE As Ordered ONE (08:01)
[2024-01-16 08:04] VITALS: TEMP 97.2
[2024-01-16 08:22] VITALS: BP 110/56; O2SAT 100
== END 2024-01-16 08:36 | disposition home or self-care (01) ==
LOC: M OPP 06:44
PROVIDERS: ATTEND Surgery
DX: Z12.11 Encounter for screening for malignant neoplasm of colon (principal); D12.8 Benign neoplasm of rectum; K64.0 First degree hemorrhoids; K22.89 Other specified disease of esophagus; K29.70 Gastritis, unspecified, without bleeding; R10.13 Epigastric pain; Z87.891 Personal history of nicotine dependence; Z79.02 Long term (current) use of antithrombotics/antiplatelets; Z79.2 Long term (current) use of antibiotics; Z79.891 Long term (current) use of opiate analgesic; Z79.899 Other long term (current) drug therapy
CPT/HCPCS: 43239; 45385; 88305; J2405; J3010

== ENCOUNTER → 2024-02-03 | Outpatient (CLI) | payer OTHER ==
[~2024-02-03] MED LIST changes: +GASTROGRAFIN SOLUTION 30ML As Ordered ONE; +ISOVUE-370 76% 100ML VIAL As Ordered ONE; +TRAM-443 PO; -TRAM37.53 PO
== END ==
LOC: M RAD 13:53
PROVIDERS: ATTEND Physician Assistant
DX: R63.4 Abnormal weight loss (principal); R63.0 Anorexia
CPT/HCPCS: 74178; Q9963; Q9967

== ENCOUNTER → 2024-02-24 | Outpatient (CLI) | payer OTHER ==
[~2024-02-24] MED LIST changes: -GASTROGRAFIN SOLUTION 30ML As Ordered ONE; -ISOVUE-370 76% 100ML VIAL As Ordered ONE
== END ==
LOC: M PAIN 09:00
PROVIDERS: ATTEND Nurse Practitioner Family
DX: M46.1 Sacroiliitis, not elsewhere classified (principal); M79.10 Myalgia, unspecified site; G89.29 Other chronic pain; G43.909 Migraine, unspecified, not intractable, without status migrainosus; I10 Essential (primary) hypertension; E78.5 Hyperlipidemia, unspecified; M54.50 Low back pain, unspecified; M54.2 Cervicalgia; I73.00 Raynaud's syndrome without gangrene; Z87.891 Personal history of nicotine dependence; Z79.891 Long term (current) use of opiate analgesic; Z79.82 Long term (current) use of aspirin; Z79.899 Other long term (current) drug therapy; Z88.8 Allergy status to other drugs, medicaments and biological substances

== ENCOUNTER → 2024-02-27 | Outpatient (CLI) | payer OTHER | LOC: M PLAIMG 13:32 | PROVIDERS: ATTEND Surgery | DX: K86.89 Other specified diseases of pancreas (principal); R63.4 Abnormal weight loss ==

== ENCOUNTER → 2024-05-18 | Outpatient (CLI) | payer OTHER ==
[~2024-05-18] MED LIST changes: +GABA-1172 PO; +GABA-1490 PO; -GABA-282 PO; -GABA600T4 PO; -TRAM-443 PO; +TRAM1TAB42 PO; +TRIAMCINOLONE ACETONIDE SUSP 40MG/ML 1ML VIAL As Ordered ONE
== END ==
LOC: M PAIN 08:15
PROVIDERS: ATTEND Anesthesiology
DX: M79.12 Myalgia of auxiliary muscles, head and neck (principal); G89.29 Other chronic pain; G43.909 Migraine, unspecified, not intractable, without status migrainosus; I10 Essential (primary) hypertension; E78.5 Hyperlipidemia, unspecified; M54.50 Low back pain, unspecified; M54.2 Cervicalgia; I73.00 Raynaud's syndrome without gangrene; Z87.891 Personal history of nicotine dependence; Z79.891 Long term (current) use of opiate analgesic; Z79.82 Long term (current) use of aspirin; Z79.899 Other long term (current) drug therapy; Z88.8 Allergy status to other drugs, medicaments and biological substances
CPT/HCPCS: 20552; J0665; J3301

== ENCOUNTER → 2024-05-18 | Outpatient (CLI) | payer OTHER ==
[~2024-05-18] MED LIST changes: -TRIAMCINOLONE ACETONIDE SUSP 40MG/ML 1ML VIAL As Ordered ONE
[2024-05-18 18:15] LABS: BASO % 0.8 % (0.0-1.0); EOS % 0.3 % (0.0-3.0); HEMATOCRIT 39.3 % (36.0-47.0); HEMOGLOBIN 12.6 g/dl (12.0-15.5); LYMPH # 0.7 10^3/uL (1.5-5.0); MEAN CORPUSCULAR HEMOGLOBIN 30.4 pg (27.0-33.0); MEAN CORPUSCULAR HGB CONC 32.1 g/dl (32.0-36.5); MEAN CORPUSCULAR VOLUME 94.9 fl (80.0-96.0); MONO # 0.4 10^3/uL (0.0-0.8); MONO % 9.3 % (2.0-8.0); NEUTROPHILS # 2.8 10^3/uL (1.5-8.5); NEUTROPHILS % 72.3 % (36.0-66.0); PLATELET COUNT, AUTOMATED 140 10^3/uL (150-450); RED BLOOD COUNT 4.14 10^6/uL (4.00-5.40); WHITE BLOOD COUNT 3.9 10^3/uL (4.0-10.0)
[2024-05-18 18:26] LABS: ERYTHROCYTE SEDIMENTATION RATE 1 mm/hr (0-30)
[2024-05-18 18:44] LABS: C REACTIVE PROTEIN QUANTITATIV < 0.40 MG/DL (<1.0)
[2024-05-18 18:45] LABS: RHEUMATOID FACTOR QUANT 4.6 IU/ML (<14)
[2024-05-18 18:46] LABS: ALBUMIN 3.9 G/DL (3.2-5.2); ALKALINE PHOSPHATASE 65 U/L (46-116); ALT/SGPT 42 U/L (7.0-40); AST/SGOT 28 U/L (<34); BILIRUBIN,TOTAL 0.5 MG/DL (0.3-1.2); BLOOD UREA NITROGEN 12 MG/DL (9-23); CARBON DIOXIDE LEVEL 30 MMOL/L (20-31); CHLORIDE LEVEL 108 MMOL/L (98-107); CREATININE FOR GFR 0.82 MG/DL (0.55-1.30); GLOMERULAR FILTRATION RATE > 60.0 (>45); GLUCOSE, FASTING 94 MG/DL (74-106); POTASSIUM SERUM 3.5 MMOL/L (3.5-5.1); SODIUM LEVEL 141 MMOL/L (136-145); TOTAL PROTEIN 6.3 G/DL (5.7-8.2)
[2024-05-18 19:11] LABS: URIC ACID 5.2 MG/DL (3.1-7.8)
== END ==
LOC: M WUC 11:42
PROVIDERS: ATTEND Ophthalmology
DX: Z13.0 Encounter for screening for diseases of the blood and blood-forming organs and certain disorders involving the immune mechanism (principal)

== ENCOUNTER → 2024-06-28 | Outpatient (CLI) | payer OTHER | LOC: M PAIN 09:30 | PROVIDERS: ATTEND Nurse Practitioner Family | DX: M79.12 Myalgia of auxiliary muscles, head and neck (principal); G89.29 Other chronic pain; M54.2 Cervicalgia; G43.909 Migraine, unspecified, not intractable, without status migrainosus; I10 Essential (primary) hypertension; E78.5 Hyperlipidemia, unspecified; M54.50 Low back pain, unspecified; I73.00 Raynaud's syndrome without gangrene; I70.90 Unspecified atherosclerosis; Z87.891 Personal history of nicotine dependence; Z79.891 Long term (current) use of opiate analgesic; Z79.899 Other long term (current) drug therapy; Z88.8 Allergy status to other drugs, medicaments and biological substances ==

== ENCOUNTER → 2024-08-09 | Outpatient (CLI) | payer OTHER | LOC: M PAIN 09:45 | PROVIDERS: ATTEND Nurse Practitioner Family | DX: M79.18 Myalgia, other site (principal); M54.12 Radiculopathy, cervical region; G89.29 Other chronic pain; G43.909 Migraine, unspecified, not intractable, without status migrainosus; I10 Essential (primary) hypertension; E78.5 Hyperlipidemia, unspecified; M54.50 Low back pain, unspecified; I73.00 Raynaud's syndrome without gangrene; Z87.891 Personal history of nicotine dependence; Z79.891 Long term (current) use of opiate analgesic; Z79.82 Long term (current) use of aspirin; Z79.899 Other long term (current) drug therapy; Z88.8 Allergy status to other drugs, medicaments and biological substances ==

== ENCOUNTER → 2024-10-07 | Outpatient (CLI) | payer OTHER ==
[~2024-10-07] MED LIST changes: +PROHANCE 279.3MG/ML 5ML VIAL As Ordered ONE
== END ==
LOC: M RAD 15:17
PROVIDERS: ATTEND Internal Medicine Gastroenterology
DX: K86.89 Other specified diseases of pancreas (principal)
CPT/HCPCS: 74183; A9576

== ENCOUNTER → 2024-12-01 | Outpatient (CLI) | payer OTHER ==
[~2024-12-01] MED LIST changes: +LIFI1DRO4 OU; -PROHANCE 279.3MG/ML 5ML VIAL As Ordered ONE; -XIID5DRO OU
== END ==
LOC: M WHC 07:34
PROVIDERS: ATTEND Internal Medicine
DX: Z13.820 Encounter for screening for osteoporosis (principal); M85.89 Other specified disorders of bone density and structure, multiple sites

== ENCOUNTER → 2024-12-14 | Outpatient (CLI) | payer OTHER ==
[2024-12-14 11:41] LABS: HEMATOCRIT 41.2 % (36.0-47.0); HEMOGLOBIN 13.5 g/dl (12.0-15.5); MEAN CORPUSCULAR HEMOGLOBIN 29.6 pg (27.0-33.0); MEAN CORPUSCULAR HGB CONC 32.8 g/dl (32.0-36.5); MEAN CORPUSCULAR VOLUME 90.4 fl (80.0-96.0); PLATELET COUNT, AUTOMATED 210 10^3/uL (150-450); RED BLOOD COUNT 4.56 10^6/uL (4.00-5.40); WHITE BLOOD COUNT 5.9 10^3/uL (4.0-10.0)
[2024-12-14 11:53] LABS: INR 0.96; PROTHROMBIN TIME 13.1 SECONDS (12.5-14.5)
[2024-12-14 12:23] LABS: BILIRUBIN,TOTAL 0.8 MG/DL (0.3-1.2); CREATININE FOR GFR 0.91 MG/DL (0.55-1.30); GLOMERULAR FILTRATION RATE 70.5 (>45); TOTAL PROTEIN 6.5 G/DL (5.7-8.2)
== END ==
LOC: M WUC 10:06
PROVIDERS: ATTEND Nurse Practitioner Acute Care
DX: I67.1 Cerebral aneurysm, nonruptured (principal)

== ENCOUNTER → 2025-02-14 | Outpatient (REF) | payer OTHER | LOC: M SFHCDERM 17:28 | PROVIDERS: ATTEND Physician Assistant | DX: L82.0 Inflamed seborrheic keratosis (principal) ==

== ENCOUNTER → 2025-04-05 | Outpatient (REF) | payer MEDICARE, OTHER ==
[2025-04-12 17:21] LABS: PANCREATIC ELASTASE STOOL > 800 mcg/g (>200)
[2025-04-14 00:28] LABS: CHYMOTRYPSIN, STOOL 19.8 U/g (2.3-51.4)
[2025-04-14 22:08] LABS: CALPROTECTIN STOOL 15 mcg/g (<50)
== END ==
LOC: M LAB REF 17:26
PROVIDERS: ATTEND Internal Medicine Gastroenterology
DX: Z15.89 Genetic susceptibility to other disease (principal); K86.89 Other specified diseases of pancreas; R10.30 Lower abdominal pain, unspecified; R19.7 Diarrhea, unspecified